=== PATIENT | male | born 1950 | race Caucasian/White ===

== ENCOUNTER 2016-11-24 16:52 | Observation (INO) | payer BC, OTHER ==
[~2016-11-24] VITALS: Ht 175.3 cm; Wt 96.0 kg
[~2016-11-24 16:52] MED LIST: ALLI60 MG PO; AVENTYL,PAMELOR25 MG PO; COLCHICINE,COL0.6 MG PO; CRESTOR20 MG PO; CRESTOR40 MG PO; Calcium Carbonate,Ca PO; Claritin,Alavart PO; Colace PO; Ecotrin PO; Effient PO; FIBER TABS625 MG PO; Fish Oil PO; Ginkgo Biloba PO; Glucosamine Sulfate PO; Lumigan 0.01% Ophth LEFT EYE; METOPROLOL SUCC; METOPROLOL SUCCINATE PO; Martinic PO; Melatonin PO; NEURONTIN300 MG PO; NITROSTAT,NITR0.4 M1 SL; OMEGA 3-6-91200 MG PO; PRILOSEC40 MG PO; Proventil,Ventolin H IH; Slow Fe PO; THERAGRAN1 TABLET PO; Toprol XL PO; Tylenol Regular Stre PO; VITAMIN D1000 INTUN PO; Vicodin,Norco 5/325 PO; Vitamin B-12 PO; ZEGERID40 MG PO; ZYLOPRIM100 MG PO; Zestril,Prinivil PO; Zoloft PO; Zyloprim PO
[2016-11-24 17:32] LABS: HEMATOCRIT 44.5 % (38.0-50.0); MCH 32.5 PG (29.0-34.0); MCHC 34.8 G/DL (30.0-36.0); MCV 93.3 FL (86-99); MEAN PLAT.VOLUME 8.9 uM^3 (9.0-12.4); PLATELET COUNT 186 K/uL (156-360); RBC DIS.WIDTH-CV 12.8 % (11.8-14.6); RBC DIS.WIDTH-SD 44.5 % (39-53); RED BLOOD COUNT 4.77 M/uL (4.00-5.50); WHITE BLOOD COUNT 8.5 K/uL (4.1-10.2)
[2016-11-24 17:40] LABS: CHLORIDE 104 mEq/L (99-109); POTASSIUM 4.5 mEq/L (3.7-5.4); SODIUM 137 mEq/L (136-147)
[2016-11-24 17:42] LABS: GLUCOSE 116 mg/dL (70-99)
[2016-11-24 17:44] LABS: ANION GAP 10 MEQ/L (2-14)
[2016-11-24 17:46] LABS: GFR ESTIMATE (CALCULATED) 38 mL/min/
[2016-11-24 17:47] LABS: UREA NITROGEN (BUN) 24 mg/dL (9-23)
[2016-11-24 17:52] LABS: TROP-I INTERPRETATION NEGATIVE; TROPONIN-I < 0.01 ng/mL (0.0-0.30)
[2016-11-24] MEDS ORDERED: CALCITRIOL0.25 MCG PO (20:23)
[2016-11-24] MEDS ORDERED: MOMETASONE FURO17 GM BOTH NARES (20:23)
[2016-11-24] MEDS ORDERED: OMEPRAZOLE40 M1 PO (20:27)
[2016-11-24] MEDS ORDERED: ZYLOPRIM100 MG PO (20:28)
[2016-11-24] MEDS ORDERED: LUMIGAN 0.50 DROP/22 LEFT EYE (20:28)
[2016-11-24] MEDS ORDERED: ZESTRIL10 MG PO (20:28)
[2016-11-24] MEDS ORDERED: OMEGA 3-6-9 11200 MG PO (20:29)
[2016-11-24] MEDS ORDERED: LO-DOSE ASPIRIN81 M1 PO (20:29)
[2016-11-24] MEDS ORDERED: CLARITIN10 MG PO (20:30)
[2016-11-24] MEDS ORDERED: ZOLOFT50 MG PO (20:30)
[2016-11-24] MEDS ORDERED: VENTOLIN HFA18 GM IH (20:31)
[2016-11-24] MEDS ORDERED: TOPROL XL25 MG PO (20:32)
[2016-11-24 22:42] VITALS: BP 116/69
[2016-11-25 01:03] LABS: TROP-I INTERPRETATION NEGATIVE; TROPONIN-I < 0.01 ng/mL (0.0-0.30)
[2016-11-25 05:31] LABS: HEMATOCRIT 41.2 % (38.0-50.0); MCH 33.4 PG (29.0-34.0); MCHC 35.4 G/DL (30.0-36.0); MCV 94.3 FL (86-99); PLATELET COUNT 173 K/uL (156-360); RBC DIS.WIDTH-CV 12.9 % (11.8-14.6); RBC DIS.WIDTH-SD 44.8 % (39-53); RED BLOOD COUNT 4.37 M/uL (4.00-5.50); WHITE BLOOD COUNT 7.3 K/uL (4.1-10.2)
[2016-11-25 05:37] LABS: TROP-I INTERPRETATION NEGATIVE; TROPONIN-I < 0.01 ng/mL (0.0-0.30)
[2016-11-25 06:16] LABS: ANION GAP 6 MEQ/L (2-14); CHLORIDE 105 MEQ/L (99-109); GFR ESTIMATE (CALCULATED) 46 mL/min/; GLUCOSE 92 mg/dL (70-99); POTASSIUM 4.4 MEQ/L (3.7-5.4); SAMPLE HEMOLYSIS CHECK 0; SAMPLE ICTERIC CHECK 0; SAMPLE LIPEMIA CHECK 0; SODIUM 137 MEQ/L (136-147); UREA NITROGEN (BUN) 22 mg/dL (9-23)
[2016-11-25 08:00] VITALS: BP 122/73
[2016-11-25 11:41] VITALS: BP 127/75
== END 2016-11-25 13:14 | disposition home or self-care (01) ==
LOC: EME 16:52 → EDOF 20:24 → 5WEST 20:24 → EDOF 20:24 → 5WEST 21:51
PROVIDERS: Emergency Medicine; Hospitalist
DX: R07.89 Other chest pain (principal); I25.10 Atherosclerotic heart disease of native coronary artery without angina pectoris; M54.2 Cervicalgia; I12.9 Hypertensive chronic kidney disease with stage 1 through stage 4 chronic kidney disease, or unspecified chronic kidney disease; N18.9 Chronic kidney disease, unspecified; E78.5 Hyperlipidemia, unspecified; K21.9 Gastro-esophageal reflux disease without esophagitis; J45.909 Unspecified asthma, uncomplicated; F41.9 Anxiety disorder, unspecified; I25.2 Old myocardial infarction; Z87.891 Personal history of nicotine dependence; M19.90 Unspecified osteoarthritis, unspecified site; M10.9 Gout, unspecified; G89.29 Other chronic pain; M54.5 Low back pain; Z95.5 Presence of coronary angioplasty implant and graft; G47.00 Insomnia, unspecified; E78.00 Pure hypercholesterolemia, unspecified
CPT/HCPCS: 71010; 78582; 80048; 84484; 85027; 85379; 93005; 94799; 99202; 99281; 99285; A9540; A9567; G0378; J1650; J1885; J2270